=== PATIENT | female | born 1985 | race Two or more races ===

== ENCOUNTER 2024-11-27 15:40 | Outpatient (CLI) | payer SELFPAY ==
[2024-11-27] VITALS (12 sets, daily range): BP systolic 134–158; BP diastolic 71–96; PULSE 80–114; RESP 18–99; TEMP 36.4–36.6; BMI 41.3
[2024-11-27 16:28] LABS: Collection Type, Urine Clean Catch
[2024-11-27 16:33] LABS: Basophils % (Auto) 0 % (0-2.5); Eosinophils # (Auto) 0.1 Thou/mm3 (0.0-0.5); Eosinophils % (Auto) 1 % (0-10); Hematocrit 33.5 % (36.0-46.0); Hemoglobin 11.2 g/dL (12.0-16.0); Immature Granulocytes % (Auto) 1 % (0-0); Immature Granulocytes Auto 0.06 Thou/mm3 (0.00-0.00); Lymphocytes % (Auto) 15 % (10-50); Mean Corpuscular HGB Conc 33.4 g/dl (31.0-37.0); Mean Corpuscular Hemoglobin 27.3 pg (25.0-35.0); Mean Corpuscular Volume 82 fL (80-100); Monocytes # (Auto) 0.7 Thou/mm3 (0.0-0.8); Monocytes % (Auto) 5 % (0-12); Neutrophils # (Auto) 10.4 Thou/mm3 (1.8-7.7); Neutrophils % (Auto) 78 % (37-80); Nucleated Red Blood Cell % 0 /100 WBC (0); Platelet Count 309 Thou/mm3 (140-440); RDW Standard Deviation 42.2 fL (36.4-46.3); Red Blood Count 4.11 Miln/mm3 (4.00-5.20); White Blood Count 13.2 Thou/mm3 (3.6-11.0)
[2024-11-27 16:51] LABS: Bacteria,Urine 4+; Bilirubin,Urine Negative (Negative); Blood,Urine Negative (Negative); Clarity,Urine Turbid (Clear/Hazy); Color,Urine Yellow (Lt Yel-Yel); Glucose, Urine Negative (Negative); Ketones,Urine Trace (Negative); Leukocyte Esterase,Urine Positive (Negative); Nitrite,Urine Negative (Negative); Protein,Urine 1+ (Neg - Trace); RBC,Urine 21 /hpf (0-3); Specific Gravity,Urine 1.025 (1.001-1.035); Squamous Epithelial Cell,Urine 12 /hpf (0-5); Urobilinogen,Urine Negative mg/dL (0.0-1.0); WBC,Urine 24 /hpf (0-5)
[2024-11-27 16:53] LABS: Partial Thromboplastin Time 25.1 Seconds (22.0-36.0); Prothrombin Time 10.7 Seconds (9.0-12.2)
[2024-11-27 16:54] LABS: Alanine Aminotransferase 33 U/L (10-49); Albumin, Serum 4.2 gm/dL (3.5-5.0); Albumin/Globulin Ratio 1.6 (1.2-2.2); Alkaline Phosphatase 144 U/L (46-116); Anion Gap 10 (7-16); Aspartate Amino Transferase 18 U/L (0-34); BUN/Creatinine Ratio 20 Ratio (12-20); Bilirubin,Total 0.2 mg/dL (0.3-1.2); Blood Urea Nitrogen 10 mg/dL (9-23); Calcium 9.3 mg/dL (8.3-10.6); Calcium (Corrected) 9.3 mg/dL (8.5-10.1); Carbon Dioxide 21.7 mMol/L (20.0-31.0); Chloride 104 mMol/L (98-107); Creatinine (Component) 0.5 mg/dL (0.6-1.3); Estimated Creatinine Clearance 184.2 mL/min (>60); Globulin 2.6 gm/dL (2.3-3.5); Glucose 103 mg/dL (74-106); LDH (Lactate Dehydrogenase) 152 U/L (120-246); Osmolality,Calculated 270 (275-295); Potassium 3.9 mMol/L (3.4-5.1); Sodium 136 mMol/L (136-145); Total Protein 6.8 gm/dL (5.7-8.2); Uric Acid 3.7 mg/dL (3.1-7.8); eGFR > 60 See Note
[2024-11-27] MEDS: LABETALOL 100 MG TABLET PO (17:26)
[2024-11-27 19:05] LABS: Fibrinogen 674 mg/dL (175-375)
[2024-11-28 19:02] LABS: Protein Total, Urine 18 mg/dL (1-14)
[2024-11-28 19:20] LABS: Protein Total, 24 hr Urine 207 mg/24hr (<149); Protein Total, Urine Volume 1150 mL/24hr (600-1800)
== END 2024-11-27 17:40 | disposition home or self-care (01) ==
LOC: S4S1 15:41 → S4SX 15:42
PROVIDERS: Referring Provider Student in an Organized Health Care Education/Training Program; Visit Provider Student in an Organized Health Care Education/Training Program
DX: Z34.82 Encounter for supervision of other normal pregnancy, second trimester (principal); Z36.89 Encounter for other specified antenatal screening; Z3A.24 24 weeks gestation of pregnancy
CPT/HCPCS: 36415; 59025; 80053; 81001; 83615; 84156; 84550; 85025; 85384; 85610; 85730; A9270

== ENCOUNTER 2025-01-17 10:58 | Observation (INO) | payer MEDICAID, SELFPAY ==
[2025-01-17] VITALS (112 sets, daily range): BP systolic 122–209; BP diastolic 59–98; PULSE 58–129; RESP 16–99; TEMP 36.7; O2SAT 81–99; BMI 41.5
[2025-01-17] MEDS: LABETALOL 100 MG TABLET 200 MG PO (11:46)
[2025-01-17 12:12] LABS: Basophils % (Auto) 0 % (0-2.5); Eosinophils # (Auto) 0.1 Thou/mm3 (0.0-0.5); Eosinophils % (Auto) 1 % (0-10); Hemoglobin 10.5 g/dL (12.0-16.0); Immature Granulocytes % (Auto) 0 % (0-0); Immature Granulocytes Auto 0.04 Thou/mm3 (0.00-0.00); Lymphocytes # (Auto) 1.8 Thou/mm3 (1.0-4.8); Lymphocytes % (Auto) 16 % (10-50); Mean Corpuscular HGB Conc 31.8 g/dl (31.0-37.0); Mean Corpuscular Hemoglobin 26.4 pg (25.0-35.0); Mean Corpuscular Volume 83 fL (80-100); Monocytes # (Auto) 0.7 Thou/mm3 (0.0-0.8); Monocytes % (Auto) 6 % (0-12); Neutrophils # (Auto) 8.9 Thou/mm3 (1.8-7.7); Neutrophils % (Auto) 77 % (37-80); Nucleated Red Blood Cell % 0 /100 WBC (0); Platelet Count 262 Thou/mm3 (140-440); RDW Standard Deviation 45.8 fL (36.4-46.3); Red Blood Count 3.97 Miln/mm3 (4.00-5.20); White Blood Count 11.5 Thou/mm3 (3.6-11.0)
[2025-01-17 12:36] LABS: Alanine Aminotransferase 98 U/L (10-49); Albumin/Globulin Ratio 1.5 (1.2-2.2); Alkaline Phosphatase 147 U/L (46-116); Anion Gap 9 (7-16); Aspartate Amino Transferase 54 U/L (0-34); BUN/Creatinine Ratio 20 Ratio (12-20); Bilirubin,Total 0.3 mg/dL (0.3-1.2); Blood Urea Nitrogen 14 mg/dL (9-23); Calcium 9.8 mg/dL (8.3-10.6); Calcium (Corrected) 9.8 mg/dL (8.5-10.1); Carbon Dioxide 22.1 mMol/L (20.0-31.0); Chloride 111 mMol/L (98-107); Creatinine (Component) 0.7 mg/dL (0.6-1.3); Globulin 2.6 gm/dL (2.3-3.5); Glucose 87 mg/dL (74-106); Osmolality,Calculated 282 (275-295); Potassium 4.4 mMol/L (3.4-5.1); Sodium 142 mMol/L (136-145); Total Protein 6.6 gm/dL (5.7-8.2); eGFR > 60 See Note
[2025-01-17 14:10] LABS: Creatinine,Random Urine 146 mg/dL (30-125); Protein Total, Random Urine 33 mg/dL (1-14)
[2025-01-17] MEDS: hydrALAZINE INJ 20 MG/ML VIAL 5 MG IV (14:21)
[2025-01-17] MEDS: BETAMET ACET/BETAMET NA PH (Celestone) 6 MG/ML VIAL 12 MG IM (14:30)
[2025-01-17] MEDS: Magnesium Sulfate 4 GM Ivpb 4 GM/50 ML BAG IV (14:32)
[2025-01-17] MEDS: RINGERS LACTATED 1000 ML 1,000 ML 75 ML IV (14:32)
[2025-01-17] MEDS: hydrALAZINE INJ 20 MG/ML VIAL 10 MG IV (14:57)
[2025-01-17 15:06] LABS: INR 0.9 (0.9-1.3); Partial Thromboplastin Time 22.4 Seconds (22.0-36.0); Prothrombin Time 10.3 Seconds (9.0-12.2)
[2025-01-17] MEDS: MAGNESIUM SULF 20 GM IVPB 20 GM/500 ML BAG IV (15:08)
--- NOTE | 2025-01-17 15:23 | PD.LDHP ---
Documentation for date of: 01/17/25 OB Labor/Induct. HPI History of Present Illness Chief complaint: elevated bp in office : 5 Para: 1 Term pregnancies: 1 pregnancies: 1 Living children: 1 History of Abortions: Spontaneous and Elective: 2 History of Vaginal deliveries: 2 History of sections: No History of : No Date of last menstrual period: 06/08/24 TONY: 03/15/25 Gestational Age (weeks): 31 Gestational Age (days): 6 Gestational age based on last menstrual period: 31 History of present illness: Marissa is a 39yo with SIUP at 31w6d presenting to triage from [facility] for elevated bp in the office. She has history of GHTN and endorses that she did not take her am dose of 200mg labetalol. She has no TOBIAS, vision changes or RUQ pain. No ctx, lof, vb. Normal movement. History of Present Dating criteria: LMP confirmed by 1st trimester US Adequate Care: Yes Ultrasounds: abnormal US findings (small VSD confirmed on echo) Narrative: 11/2016 10wk sab 11/2017 6wk 11/2018 21wk IUFD with D&C for retained placenta 12/17/2019 term , male 7lb3oz, post- pre-eclampsia -GHTN --> pre-eclampsia with severe features based on multiple consecutive severe range bp's requiring IV anti-HTN medicine, LFTs that have tripled (AST 54, ALT 98) since 11/27/24. Last growth scan 12/31/24: 60%ile. 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 -O negative, received Rhogam at 28wk -epilepsy, absence type Labs Maternal Blood Type: O Neg Labs: Positive: Rubella Titre and Negative: RPR, Hepatitis B, HIV, Chlamydia and Gonorrhea Review of Systems Review of Systems Narrative Review of Systems: Review of Systems Systems Reviewed: All systems reviewed, normal except as documented Constitutional Constitutional: Denies body ache(s), Denies chills, Denies fever(s) and Denies headache(s) ENT Ears, Nose, Mouth, and Throat: Denies headache(s) and Denies vertigo Cardiovascular Cardiovascular: Denies chest pain, Denies palpitations, Denies dyspnea and Denies syncope Respiratory Respiratory: Denies cough, Denies dyspnea Gastrointestinal Gastrointestinal: Denies nausea and Denies vomiting Neurologic Neurologic: Denies convulsions, Denies headache(s), Denies other visual disturbances, Denies syncope and Denies vertigo Past Medical History Family History OTHER FAMILY HX: father: HTN mother: HTN and T2DM Surgical History SURGICAL: Negative Section OTHER SURGICAL HX: appendectomy, urethral reflux correction Social History SOCIAL: No tobacco or illicit drug use. ETOH only socially prior to . 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 Past Medical History Comments PMH COMMENT: -Hx of pre-eclampsia after prior term delivery -Starting BMI 40 -AMA, age 39 -pre-diabetes (HgbA1c 5.9) -epilepsy, absence type -migraines -anxiety -endometriosis Meds Home Medications and Allergies Home Medications ?Medication ?Instructions ?Recorded ?Confirmed ?Type vitamins-iron fumarate 27 1 tab PO QDAY 12/17/19 12/17/19 History mg iron-folic acid 0.8 mg tablet ( Vitamin) Allergies Allergy/AdvReac Type Severity Reaction Status Date / Time No Known Allergies Allergy Verified 12/17/19 08:17 OB Exam Physical Exam Vital signs: Temp Pulse Resp BP Pulse Ox 98.1 F 88 16 181/79 H 97 01/17/25 11:21 01/17/25 15:21 01/17/25 11:21 01/17/25 15:21 01/17/25 15:22 Narrative: General: well developed, well nourished, no acute distress, conversant Cardiac: normal heart rate Lungs: breathing without distress Abdomen: soft, gravid, non-tender, no rebound or guarding Extremities: no pain with palpation of calves Detailed Labor and Delivery Exam Presentation: Breech (on ultrasound) Membranes: intact Baseline heart rate: 130 monitor accelerations: 15x15 monitor decelerations: None supervisor intermediates variability: Moderate (11-25) Contraction frequency (min): no ctx pattern OB Results Labs 01/17/25 11:56 01/17/25 11:56 Labs: Short CBC 03/13/25 Range/Units 11:56 WBC 11.5 H (3.6-11.0) Thou/mm3 Hgb 10.5 L (12.0-16.0) g/dL Hct 33.0 L (36.0-46.0) % Plt Count 262 (140-440) Thou/mm3 BMP 01/17/25 11:56 Sodium 142 Potassium 4.4 Chloride 111 H Carbon Dioxide 22.1 BUN 14 Creatinine 0.7 Glucose 87 Calcium 9.8 Liver Function 01/17/25 Range/Units 11:56 Total Bilirubin 0.3 (0.3-1.2) mg/dL AST 54 H (0-34) U/L ALT 98 H (10-49) U/L Alkaline Phosphatase 147 H (46-116) U/L Albumin 4.0 (3.5-5.0) gm/dL Impressions Impression: Examination: Complete OB ultrasound greater than 14 weeks Date and time of exam: January 17, 2025 1850 hrs. Indications: Diagnosis hypertension, pelvic contractions today, unknown cervical length Findings: Viable intrauterine single fetus with single amniotic sac presentation breech Cardiac motion 144 BPM Placenta posterior grade 2 Umbilical cord insertion seen Amniotic fluid index 12 cm spine anterior Cervix 4.3 cm Ovaries obscured by bowel gas. Composite estimated gestational age based on BPD, head circumference, abdominal circumference, femur length is 31 weeks 0 days Estimated weight 1738 g. Survey of intracranial anatomy, spinal anatomy, abdominal anatomy, four-chamber heart performed with no abnormalities identified. Impression: Viable intrauterine gestation breech presentation Cervix 4.3 cm closed OB Assessment & Plan Assessment and Plan (1) Pre-eclampsia, severe, antepartum: Status: Acute Assessment and plan: Assessment: Marissa is a 39yo with SIUP at 31w6d presenting to triage from clinic for elevated bp in the office. She has history of GHTN and endorses that she did not take her am dose of 200mg labetalol. She initially had severe range bp but after taking 200mg labetalol PO in triage, bp's normalized for less than an hour before popping up to severe range again. She received multiple doses of IV anti-HTN medication (5mg hydralazine, 10mg hydralazine, 20mg labetalol, 40mg labetalol) and was started on IV Magnesium 4g/2g regimen at 1432. She received betamethasone 12mg IM at 1436. Nickerson catheter placed for close I/O monitoring. Labs notable for AST 54, ALT 98 (which is a 3x increase from 11/27/24, AST 18/ALT 33). Hgb 10.5, plt 262. Serum creatinine 0.7. Urine p:c 0.22. She has a benign exam. Started to develop a TOBIAS after being in triage for a few hours, endorsed hunger. After tylenol and light snack: TOBIAS resolved. She had a run of ctx q8-10min while awaiting transport that eventually resolved. Ultrasound for cervical length demonstrated CL 4.3cm. Breech presentation. DANITA 12cm. EFW 1738g. Reassuring assessment with Cat 1 FHRT. PMhx/ complicated by: -GHTN --> pre-eclampsia with severe features based on multiple consecutive severe range bp's requiring IV anti-HTN medicine, LFTs that have tripled (AST 54/ALT 98) since 11/27/24 (AST 18/ALT 33). Growth scan 12/31/24: 60%ile. Growth scan 01/17: 23%ile. -Breech presentation -Hx of pre-eclampsia after prior term delivery -Starting BMI 40 -AMA, age 39 -A1GDM on pre-diabetes (initial HgbA1c 5.9). 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 Cárdenas who recommends transfer to higher level of care for higher level NICU at [facility] -Continue Magnesium sulfate 2g/hr IV -Continue close monitoring of bp's. Will give IV anti-HTN medication for any 2 consecutive bp's > 160 systolic or > 110 diastolic -CEFM -NPO (last ate at 1652) -Safe for transfer at this time. Patient counseled regarding diagnosis and need for transfer. Answered all questions to her apparent satisfaction. (2) Elevated liver enzymes: Status: Acute (3) Gestational diabetes: Status: Acute (4) Obesity affecting : Status: Acute (5) History of IUFD: Status: Acute (6) Elderly multigravida: Status: Acute (7) Epilepsy, absence: Status: Acute (3) Gestational diabetes Qualifiers: Gestational diabetes mellitus control: diet-controlled Trimester: third trimester Qualified Code(s): O24.410 - Gestational diabetes mellitus in , diet controlled (4) Obesity affecting Qualifiers: Obesity type affecting : unspecified obesity Trimester: third trimester Qualified Code(s): O99.213 - Obesity complicating , third trimester (6) Elderly multigravida Qualifiers: Trimester: third trimester Qualified Code(s): O09.523 - Supervision of elderly multigravida, third trimester (7) Epilepsy, absence Qualifiers: Intractability: not intractable Status epilepticus: without status epilepticus Qualified Code(s): G40.A09 - Absence epileptic syndrome, not intractable, without status epilepticus
[2025-01-17 15:29] LABS: LDH (Lactate Dehydrogenase) 149 U/L (120-246); Uric Acid 6.4 mg/dL (3.1-7.8)
[2025-01-17] MEDS: LABETALOL INJ 5 MG/ML VIAL 20 ML 20 MG IVP (15:32)
[2025-01-17 15:37] LABS: Fibrinogen 617 mg/dL (175-375)
[2025-01-17] MEDS: ACETAMINOPHEN 325 MG TABLET 650 MG PO (16:11)
[2025-01-17] MEDS: LABETALOL INJ 5 MG/ML VIAL 20 ML 40 MG IVP (16:11)
--- NOTE | 2025-01-17 18:09 | XR_ITS ---
Examination: Complete OB ultrasound greater than 14 weeks Date and time of exam: January 17, 2025 1850 hrs. Indications: Diagnosis hypertension, pelvic contractions today, unknown cervical length Findings: Viable intrauterine single fetus with single amniotic sac presentation breech Cardiac motion 144 BPM Placenta posterior grade 2 Umbilical cord insertion seen Amniotic fluid index 12 cm spine anterior Cervix 4.3 cm Ovaries obscured by bowel gas. Composite estimated gestational age based on BPD, head circumference, abdominal circumference, femur length is 31 weeks 0 days Estimated weight 1738 g. Survey of intracranial anatomy, spinal anatomy, abdominal anatomy, four-chamber heart performed with no abnormalities identified. Impression: Viable intrauterine gestation breech presentation Cervix 4.3 cm closed
[2025-01-17 20:06] LABS: Magnesium 4.9 mg/dL (1.6-2.6)
[2025-01-17] MEDS: ONDANSETRON INJ 2 MG/ML INJ 2 ML 4 MG IV (20:35)
[2025-01-17] MEDS: CITRIC ACID/SODIUM CITR 15 ML UDC (BICITRA) 30 ML PO (20:55)
--- NOTE | 2025-01-18 01:40 | PC.NURSE ---
During ambulance transportation, VS at 2215 125/74, 72, 96% room air. heart tone 125 bpm. 2245- VS 125/80, 80, 20, 95% room air. heart rate 125 bpm. 2315- 123/80, 82, 78, 96% room air, heart tone 125 bpm. 2330- prior to arrival to [facility] heart tone 125 bpm. Pain 0/10. Updated hand off report given to Ludmila LAND.
== END 2025-01-17 22:05 | disposition other institution (70) ==
LOC: S4SX 11:06 → S4NX 22:06
PROVIDERS: Admitting Provider Obstetrics & Gynecology; Visit Provider Obstetrics & Gynecology
DX: O14.13 Severe pre-eclampsia, third trimester (principal); O13.3 Gestational [pregnancy-induced] hypertension without significant proteinuria, third trimester; Z3A.31 31 weeks gestation of pregnancy; O32.1XX0 Maternal care for breech presentation, not applicable or unspecified; O09.523 Supervision of elderly multigravida, third trimester; O99.213 Obesity complicating pregnancy, third trimester; E66.9 Obesity, unspecified; O99.353 Diseases of the nervous system complicating pregnancy, third trimester; G40.909 Epilepsy, unspecified, not intractable, without status epilepticus; O24.410 Gestational diabetes mellitus in pregnancy, diet controlled; O09.293 Supervision of pregnancy with other poor reproductive or obstetric history, third trimester; O26.893 Other specified pregnancy related conditions, third trimester; R74.8 Abnormal levels of other serum enzymes
CPT/HCPCS: 36415; 59025; 59899; 76805; 80053; 81001; 82570; 83615; 83735; 84156; 84550; 85025; 85384; 85610; 85730; 86900; 86901; 96372; 96374; J0360; J0702; J2405; J3475; J3490; J7120; A9270; J1920